=== PATIENT | female | born 1980 | race Caucasian/White ===

== ENCOUNTER 2018-06-21 15:26 | Emergency (ER) | payer SELFPAY ==
[~2018-06-21] VITALS: Ht 162.6 cm; Wt 81.8 kg
[2018-06-21 19:17] VITALS: BP 122/74
== END 2018-06-21 19:17 | disposition home or self-care (01) ==
LOC: EMS 15:27
DX: F10.20 Alcohol dependence, uncomplicated (principal); Z51.81 Encounter for therapeutic drug level monitoring; Y90.4 Blood alcohol level of 80-99 mg/100 ml
CPT/HCPCS: 36415; 99283; G0480

== ENCOUNTER 2024-02-08 13:45 | Emergency (ER) | payer OTHER ==
[~2024-02-08] VITALS: Ht 165.1 cm; Wt 74.0 kg
[2024-02-08 13:50] VITALS: TEMP 98.2
[2024-02-08] MEDS ORDERED: BACTDSB PO (15:39)
[2024-02-08] MEDS ORDERED: IBUP-1492 PO (15:39)
[2024-02-08] MEDS ORDERED: CEPH-558 PO (15:39)
[2024-02-08] MEDS: CefTRIAXone SODIUM 1 GM/VIAL IM ONE (15:56)
[2024-02-08] MEDS: IBUPROFEN 600 MG TABLET PO ONE (15:57)
[2024-02-08] MEDS: LIDOCAINE/PF 1% 2 ML VIAL IM ONE (15:57)
[2024-02-08 16:00] VITALS: BP 129/71; PULSE 81; RESP 17
== END 2024-02-08 16:23 | disposition home or self-care (01) ==
LOC: EMS 13:45
DX: L03.116 Cellulitis of left lower limb (principal); F10.20 Alcohol dependence, uncomplicated; Y90.9 Presence of alcohol in blood, level not specified
CPT/HCPCS: 99283; 96372; J0696; J3490